=== PATIENT | female | born 1940 | race Caucasian/White ===

== ENCOUNTER → 2017-01-11 | Outpatient (CLI) | payer MEDICARE ==
--- NOTE | 2017-01-11 11:42 | REPMRS ---
Patient History The patient states she had a clinical breast exam in 01/15 Patient is postmenopausal, has history of other cancer at age 62, and has history of endometrial cancer at age 38. Family history of breast cancer in niece under age 50 and colorectal cancer in nephew at age 50 or over. Took hormonal contraceptives for 3 months. Digital Woman Screen Mammo: January 11, 2017 - Exam #: [id number] Bilateral CC and MLO view(s) were taken. Technologist: Milla Ma, Technologist Prior study comparison: January 10, 2016, digital woman screen mammo performed at [facility] [employer]. January 07, 2015, digital woman screen mammo performed at [facility] [employer] [facility]. January 05, 2014, digital woman screen mammo performed at [facility] [employer]. FINDINGS: There are scattered fibroglandular densities. There has been no change in the appearance of the mammogram from the prior studies. There is a mild amount of scattered fibroglandular density which is fairly symmetric. There is no interval development of dominant mass, architectural distortion, or clustered microcalcification suggestive of malignancy. ASSESSMENT: BI-RADS/ACR category 1 mammogram. Negative. Recommendation Routine screening mammogram in 1 year (for women over age 40). This mammogram was interpreted with the aid of an FDA-approved computer-aided dectection system. Electronically Signed By: Feliz Acevedo MD 01/11/17 [id number]
== END ==
LOC: M WHC 10:27
PROVIDERS: ATTEND Nurse Practitioner Family
DX: Z12.31 Encounter for screening mammogram for malignant neoplasm of breast (principal); Z78.0 Asymptomatic menopausal state; Z85.42 Personal history of malignant neoplasm of other parts of uterus
CPT/HCPCS: G0202; G0463

== ENCOUNTER → 2018-04-01 | Outpatient (CLI) | payer MEDICARE | LOC: M WHC 10:03 | DX: Z12.31 Encounter for screening mammogram for malignant neoplasm of breast (principal); Z78.0 Asymptomatic menopausal state; Z85.42 Personal history of malignant neoplasm of other parts of uterus | CPT/HCPCS: 77067 ==

== ENCOUNTER → 2019-04-04 | Outpatient (CLI) | payer MEDICARE ==
--- NOTE | 2019-04-04 11:51 | REPMRS ---
Patient History The patient states she had a clinical breast exam in 04/2019. Patient is postmenopausal, has history of basal cell skin cancer at age 62, has history of endometrial cancer at age 38, and had previous chemotherapy at age 38. Family history of breast cancer under age 50 in niece, colorectal cancer at age 50 or over in maternal unspecified relative. Took hormonal contraceptives for 3 months. 3D TOMOSYNTHESIS WAS PERFORMED. Digital Woman Screen Mammo: April 04, 2019 - Exam #: [id number] Bilateral CC and MLO view(s) were taken. Technologist: Katherin Bass, Technologist Prior study comparison: April 01, 2018, digital woman screen mammo performed at [facility] [employer]. January 11, 2017, digital woman screen mammo performed at [facility] [employer]. FINDINGS: There are scattered fibroglandular densities. There has been no change in the appearance of the mammogram from the prior studies. There is a mild amount of residual fibroglandular tissue which is fairly symmetric. There is no interval development of dominant mass, architectural distortion, or clustered microcalcification suggestive of malignancy. Assessment: BI-RADS/ACR category 1 mammogram. Negative Mammogram. Recommendation Routine screening mammogram in 1 year (for women over age 40). This mammogram was interpreted with the aid of an FDA-approved computer-aided dectection system. Electronically Signed By: Bethel Monroy MD 04/04/19 [id number]
--- NOTE | 2019-04-07 10:49 | DEXA ---
AP SPINE L1 - L4 1.302 0.9 2.6 LT FEMUR TOTAL 0.970 -0.3 1.5 LT NECK 0.864 -1.2 0.8 RT FEMUR TOTAL 0.902 -0.8 1.0 RT NECK 0.855 -1.3 0.7 TOTAL BODY TOTAL OTHER COMMENTS: Normal bone densitometry of the spine. There is low bone density of the hips. The increased density of the spine does represent a significant change. The increased density of the left hip does represent a significant change. The increased density of the right hip does not represent a significant change. The density of the spine has increased 23.1% since the initial exam on 01/03/2002. The spine density has increased 3.3% since the most recent exam on 12/17/2011. The density of the left hip has increased 10.6% since the initial exam on 01/03/2002. The density of the left hip has increased 2.8% since the most recent exam on 12/17/2011. The density of the right hip has increased 8.4% since the initial exam on 01/03/2002. The density of the right hip has increased 0.4% since the most recent exam on 12/17/2011. FOLLOW-UP: Recommendation for the next bone density exam: 2 years. JEZ
== END ==
LOC: M WHC 09:33
PROVIDERS: ATTEND Nurse Practitioner Family
DX: Z12.31 Encounter for screening mammogram for malignant neoplasm of breast (principal); N95.9 Unspecified menopausal and perimenopausal disorder; Z78.0 Asymptomatic menopausal state; Z85.828 Personal history of other malignant neoplasm of skin; Z85.40 Personal history of malignant neoplasm of unspecified female genital organ; Z92.21 Personal history of antineoplastic chemotherapy; Z92.0 Personal history of contraception
CPT/HCPCS: 77063; 77067; 77080; G0463

== ENCOUNTER → 2019-06-29 | Outpatient (CLI) | payer MEDICARE ==
--- NOTE | 2019-06-29 10:16 | PFTRPT ---
Height: 59.50 Inches Weight: 162.00 Lbs BSA: 1.70 Diagnosis: R05 DATE OF PROCEDURE: 06/29/2019 ORDERED BY: Dr. Sekou Garcia Spirometry: Pre and post bronchodilator study of excellent technical quality. Forced vital capacity normal. FEV1 in proportion. Obstructive index is, therefore, normal. Flow volume loop: Expiratory limb of the flow volume loop is normal. No significant bronchodilator response identified. Lung volumes: Total lung capacity borderline elevated. Residual volume is in proportion. Diffusing capacity: Diffusing capacity is normal. Hemoglobin: Hemoglobin is mildly reduced at 11.8. Airway mechanics: Airway resistance and conductance are normal. IMPRESSION: Underlying anemia; otherwise, normal study. MTDD
== END ==
LOC: M CARPUL 09:01
PROVIDERS: ATTEND Internal Medicine Pulmonary Disease
DX: R05 Cough (principal)

== ENCOUNTER → 2019-07-11 | Outpatient (CLI) | payer MEDICARE ==
[~2019-07-11] MED LIST: METHACHOLINE KIT (J7674) INH ONE
--- NOTE | 2019-07-11 14:36 | PFTRPT ---
Height: 59.50 Inches Weight: 162.00 Lbs BSA: 1.70 Diagnosis: R05 DATE OF PROCEDURE: 07/11/2019 ORDERED BY: Dr. Sekou Garcia INTERPRETATION: Study of excellent technical quality. Under protocol, methacholine was administered. At a dose of 2.5 mg or 13.875 CDUs, a 26% decline in the FEV1 was noted. PC of 0.93 is significant. Flow rates did return to baseline post bronchodilator administration. IMPRESSION: Positive methacholine challenge study. MTDD
== END ==
LOC: M CARPUL 13:17
PROVIDERS: ATTEND Internal Medicine Pulmonary Disease
DX: R05 Cough (principal)
CPT/HCPCS: 94070; 95070; J7674

== ENCOUNTER → 2019-10-13 | Outpatient (REF) | payer MEDICARE | LOC: M SFHCWAGY 18:39 | PROVIDERS: ATTEND Family Medicine | DX: R31.9 Hematuria, unspecified (principal) | CPT/HCPCS: 81002; 87088; 87186; G0463 ==

== ENCOUNTER → 2020-04-18 | Outpatient (CLI) | payer MEDICARE ==
--- NOTE | 2020-04-20 10:41 | REPMRS ---
Patient History The patient states she had a clinical breast exam in April 2020. Family history of breast cancer under age 50 in niece, colorectal cancer at age 50 or over in maternal unspecified relative. Took hormonal contraceptives for 3 months. Digital Woman Screen Mammo: April 18, 2020 - Exam #: [id number] Bilateral CC and MLO view(s) were taken. Technologist: Sabi Mauro, Technologist Prior study comparison: April 04, 2019, bilateral digital woman screen mammo performed at [facility]. April 01, 2018, digital woman screen mammo performed at [facility][1]. January 11, 2017, digital woman screen mammo performed at [facility][1]. FINDINGS: There are scattered fibroglandular densities. The Volpara volumetric breast density category is:B. There has been no change in the appearance of the mammogram from the prior studies. There is a mild amount of scattered fibroglandular density which is fairly symmetric. There is no interval development of dominant mass, architectural distortion, or grouped microcalcification suggestive of malignancy. 3-D tomosynthesis shows no additional findings. Assessment: BI-RADS/ACR category 1 mammogram. Negative Mammogram. Recommendation Routine screening mammogram of both breasts in 1 year (for women over age 40). This patient's Lifetime Breast Cancer Risk is estimated at 1.7 %. This mammogram was interpreted with the aid of an FDA-approved computer-aided dectection system. Electronically Signed By: Feliz Acevedo MD 04/20/20 1403
== END ==
LOC: M WHC 11:41
PROVIDERS: ATTEND Nurse Practitioner Family
DX: Z01.411 Encounter for gynecological examination (general) (routine) with abnormal findings (principal); Z12.31 Encounter for screening mammogram for malignant neoplasm of breast; Z92.0 Personal history of contraception
CPT/HCPCS: 77063; 77067; G0101

== ENCOUNTER → 2021-05-14 | Outpatient (CLI) | payer MEDICARE ==
--- NOTE | 2021-05-14 12:44 | REPMRS ---
Patient History The patient states she had a clinical breast exam in May 2021. Family history of breast cancer under age 50 in niece, colorectal cancer at age 50 or over in maternal unspecified relative. Took hormonal contraceptives for 3 months. Patient states no breast complaints today. Patient has signed MRS History Sheet. Digital Woman Screen Mammo: May 14, 2021 - Exam #: [id number] Bilateral CC and MLO view(s) were taken. Technologist: Elsie Rubio, Technologist Prior study comparison: April 18, 2020, bilateral digital woman screen mammo performed at [facility]. April 04, 2019, bilateral digital woman screen mammo performed at [facility]. FINDINGS: There are scattered fibroglandular densities. Screening. Digital screening (2D) mammography was performed bilaterally in the CC and MLO projections. Additionally, breast tomosynthesis (3D mammography) was performed bilaterally in the CC and MLO projections. Todays exam was compared to the prior exam/exams. By history, the patient has no complaints of a palpable breast abnormality or other significant breast complaints. The breasts are unchanged in size and shape. There are no sally-soft tissue densities or spiculated masses. There is no internal architectural distortion. Once again, stable benign appearing calcifications are seen.There are no suspicious sally-calcific clusters. Skin thickening or nipple retraction is not present. IMPRESSION: BI-RADS Category 2- Benign Findings. There is no evidence of malignant alteration of the breasts. Followup examination recommended in one year. The Volpara volumetric breast density category is B, there are scattered areas of fibroglandular densities. This mammogram was read with the assistance of [facility] [employer],an FDA approved computer aided detection system for mammography. The lifetime Tyrer-Cuzick score is 1.3 % Negative x-ray reports should not delay surgical consultation if a dominant or clinically suspicious mass is present. Not all breast cancers can be identified by mammography. Therefore, we recommend that you continue to perform regular breast self-examination and physical examination and then promptly contact your physician of any concerns or changes. Adenosis and dense breasts may obscure an underlying neoplasm. Assessment: BI-RADS/ACR category 2 mammogram. Benign Findings. Recommendation Routine screening mammogram of both breasts in 1 year. Electronically Signed By: Michel Epps DO 05/14/21 1240
== END ==
LOC: M WHC 11:36
PROVIDERS: ATTEND Nurse Practitioner Women's Health
DX: Z12.31 Encounter for screening mammogram for malignant neoplasm of breast (principal); Z80.3 Family history of malignant neoplasm of breast; Z92.0 Personal history of contraception; R92.1 Mammographic calcification found on diagnostic imaging of breast
CPT/HCPCS: 77063; 77067; G0463

== ENCOUNTER → 2022-04-17 | Outpatient (CLI) | payer MEDICARE | LOC: M WUC 12:07 | PROVIDERS: ATTEND Physician Assistant | DX: S23.41XD Sprain of ribs, subsequent encounter (principal) ==

== ENCOUNTER → 2022-07-22 | Outpatient (CLI) | payer MEDICARE | LOC: M WHC 14:03 | PROVIDERS: ATTEND Advanced Practice Midwife | DX: Z12.31 Encounter for screening mammogram for malignant neoplasm of breast (principal) ==

== ENCOUNTER → 2023-11-04 | Outpatient (CLI) | payer MEDICARE | LOC: M WHC 13:48 | PROVIDERS: ATTEND Advanced Practice Midwife | DX: Z12.31 Encounter for screening mammogram for malignant neoplasm of breast (principal) ==

== ENCOUNTER → 2024-02-17 | Outpatient (REF) | payer MEDICARE ==
[2024-02-17 18:19] LABS: APPEARANCE, URINE HAZY (CLEAR); BACTERIA, URINE AUTO NEGATIVE (NEGATIVE); BILIRUBIN, URINE AUTO NEGATIVE (NEGATIVE); BLOOD, URINE BLOOD NEGATIVE (NEGATIVE); COLOR, URINE YELLOW (YELLOW); GLUCOSE, URINE (UA) AUTO NEGATIVE (NEGATIVE); KETONE, URINE AUTO NEGATIVE (NEGATIVE); LEUKOCYTE ESTERASE, URINE AUTO NEGATIVE (NEGATIVE); MUCUS, URINE SMALL (NEGATIVE); NITRITE, URINE AUTO NEGATIVE (NEGATIVE); PROTEIN, URINE AUTO NEGATIVE (NEGATIVE); RBC, URINE AUTO 0 /HPF (0-3); SQUAMOUS EPITHELIAL CELL UR AU 0 /HPF (0-6); UROBILINOGEN, URINE AUTO 0.2 mg/dL (0.0-2.0); WBC, URINE AUTO 0 /HPF (0-3)
== END ==
LOC: M SMT 16:54
PROVIDERS: ATTEND Urology
DX: Z87.440 Personal history of urinary (tract) infections (principal); Z79.899 Other long term (current) drug therapy

== ENCOUNTER → 2024-03-03 | Outpatient (REF) | payer MEDICARE | LOC: M SFHCDERM 13:43 | PROVIDERS: ATTEND Physician Assistant | DX: T81.49XA Infection following a procedure, other surgical site, initial encounter (principal) ==

== ENCOUNTER → 2024-03-10 | Outpatient (REF) | payer MEDICARE | LOC: M SFHCDERM 15:59 | PROVIDERS: ATTEND Physician Assistant | DX: T81.49XA Infection following a procedure, other surgical site, initial encounter (principal) ==

== ENCOUNTER 2024-05-08 08:33 | Day surgery (SDC) | payer MEDICARE ==
[~2024-05-08] VITALS: Ht 154.9 cm; Wt 74.3 kg
[~2024-05-08 08:33] MED LIST changes: +AMLO1TAB24 PO; +ARNU1INH; +ATOR1TAB21 PO; +B-12100010 PO; +BENA-8 PO; +BYST10TA2 PO; +CALC500C16 PO; +ESOM40CA35 PO; +FAMO40TA3 PO; +FLOVENT; +LIDOCAINE 2% 100MG/5ML SDV (FOR ANES.) As Ordered ONE; -METHACHOLINE KIT (J7674) INH ONE; +MULT-90 PO; +ONDANSETRON 4MG 2ML VIAL As Ordered ONE; +ROCURONIUM BROMIDE 50MG/5ML VIAL As Ordered ONE; +SERT50TA29 PO; +SUCR1TAB56 PO; +SUGAMMADEX SODIUM 500 MG/5 ML VIAL (BRIDION) As Ordered ONE; +propofoL 200 MG/20 ML VIAL As Ordered ONE
[2024-05-08] MEDS ORDERED: fentaNYL 100 MCG/2 ML INJECTION As Ordered ONE (08:55)
[2024-05-08] MEDS ORDERED: LR 1,000 ML IV SCH ×2 (09:05→10:25)
[2024-05-08] MEDS: ceFAZolin SOD 2 GM in IV 1 EA IV ONE (10:00)
[2024-05-08] MEDS ORDERED: fentaNYL 100 MCG/2 ML INJECTION IV PRN (10:25)
[2024-05-08] MEDS ORDERED: ONDANSETRON 4MG 2ML VIAL IV PRN (10:25)
[2024-05-08 11:13] VITALS: BP 179/77; TEMP 97.8; O2SAT 97
== END 2024-05-08 11:41 | disposition home or self-care (01) ==
LOC: M SDC 08:33
PROVIDERS: ATTEND Urology
DX: N32.89 Other specified disorders of bladder (principal); R93.89 Abnormal findings on diagnostic imaging of other specified body structures; I10 Essential (primary) hypertension; E78.00 Pure hypercholesterolemia, unspecified; K44.9 Diaphragmatic hernia without obstruction or gangrene; K21.9 Gastro-esophageal reflux disease without esophagitis; J45.909 Unspecified asthma, uncomplicated; G47.00 Insomnia, unspecified; F32.A Depression, unspecified; Z85.43 Personal history of malignant neoplasm of ovary; Z91.030 Bee allergy status; Z88.2 Allergy status to sulfonamides; Z88.8 Allergy status to other drugs, medicaments and biological substances; Z87.891 Personal history of nicotine dependence; Z79.899 Other long term (current) drug therapy; Z87.440 Personal history of urinary (tract) infections
CPT/HCPCS: 52000; J0690; J1100; J2405; J3010

== ENCOUNTER → 2024-05-15 | Outpatient (REF) | payer MEDICARE ==
[~2024-05-15] MED LIST changes: -BYST10TA2 PO; +BYST1TAB3 PO; -LIDOCAINE 2% 100MG/5ML SDV (FOR ANES.) As Ordered ONE; -ONDANSETRON 4MG 2ML VIAL As Ordered ONE; -ROCURONIUM BROMIDE 50MG/5ML VIAL As Ordered ONE; -SUGAMMADEX SODIUM 500 MG/5 ML VIAL (BRIDION) As Ordered ONE; -propofoL 200 MG/20 ML VIAL As Ordered ONE
[2024-05-15 13:51] LABS: APPEARANCE, URINE HAZY (CLEAR); BACTERIA, URINE AUTO NEGATIVE (NEGATIVE); BILIRUBIN, URINE AUTO NEGATIVE (NEGATIVE); BLOOD, URINE BLOOD NEGATIVE (NEGATIVE); COLOR, URINE YELLOW (YELLOW); GLUCOSE, URINE (UA) AUTO NEGATIVE (NEGATIVE); KETONE, URINE AUTO NEGATIVE (NEGATIVE); LEUKOCYTE ESTERASE, URINE AUTO TRACE (NEGATIVE); MUCUS, URINE SMALL (NEGATIVE); NITRITE, URINE AUTO NEGATIVE (NEGATIVE); PROTEIN, URINE AUTO NEGATIVE (NEGATIVE); RBC, URINE AUTO 1 /HPF (0-3); SQUAMOUS EPITHELIAL CELL UR AU 1 /HPF (0-6); UROBILINOGEN, URINE AUTO 0.2 mg/dL (0.0-2.0); WBC, URINE AUTO 1 /HPF (0-3)
== END ==
LOC: M SMT 12:52
PROVIDERS: ATTEND Urology
DX: Z87.440 Personal history of urinary (tract) infections (principal); Z79.899 Other long term (current) drug therapy

== ENCOUNTER → 2024-05-29 | Outpatient (CLI) | payer MEDICARE ==
[~2024-05-29] MED LIST changes: +BYST10TA2 PO; -BYST1TAB3 PO; +ISOVUE-370 76% 100ML VIAL As Ordered ONE
== END ==
LOC: M RAD 10:21
PROVIDERS: ATTEND Urology
DX: Z87.440 Personal history of urinary (tract) infections (principal); K57.30 Diverticulosis of large intestine without perforation or abscess without bleeding; I70.0 Atherosclerosis of aorta
CPT/HCPCS: 72193; Q9967

== ENCOUNTER 2024-12-14 07:55 | Day surgery (SDC) | payer MEDICARE ==
[~2024-12-14] VITALS: Ht 152.4 cm; Wt 74.7 kg
[~2024-12-14 07:55] MED LIST changes: -ARNU1INH; +ARNU1INH INH; -BYST10TA2 PO; +BYST1TAB3 PO; +CALC600T60 PO; -ISOVUE-370 76% 100ML VIAL As Ordered ONE; +META28.32 PO
[2024-12-14] MEDS ORDERED: propofoL 200 MG/20 ML VIAL As Ordered ONE (08:26)
[2024-12-14] MEDS ORDERED: LIDOCAINE 2% 100MG/5ML SDV (FOR ANES.) As Ordered ONE (08:26)
[2024-12-14 09:15] VITALS: TEMP 96.9
[2024-12-14 09:34] VITALS: BP 166/88; O2SAT 94
== END 2024-12-14 09:35 | disposition home or self-care (01) ==
LOC: M OPP 07:55
PROVIDERS: ATTEND Surgery
DX: K44.9 Diaphragmatic hernia without obstruction or gangrene (principal); K29.60 Other gastritis without bleeding; K30 Functional dyspepsia; R14.0 Abdominal distension (gaseous); Z88.2 Allergy status to sulfonamides; Z91.030 Bee allergy status; Z88.8 Allergy status to other drugs, medicaments and biological substances; Z79.51 Long term (current) use of inhaled steroids; Z79.899 Other long term (current) drug therapy; J45.909 Unspecified asthma, uncomplicated

== ENCOUNTER → 2025-01-01 | Outpatient (CLI) | payer MEDICARE ==
[~2025-01-01] MED LIST changes: +E-Z-GAS II EFFERVESCENT PACKET (SODIUM BICARB./CITRIC ACID/SIMETHICONE) As Ordered ONE; +E-Z-HD 98% w/w 340GM SUSP BTL As Ordered ONE; +E-Z-PAQUE 96% w/w SUSP 176GM BTL As Ordered ONE
== END ==
LOC: M RAD 09:14
PROVIDERS: ATTEND Physician Assistant
DX: K30 Functional dyspepsia (principal); K44.9 Diaphragmatic hernia without obstruction or gangrene; Q39.4 Esophageal web

== ENCOUNTER 2025-02-12 10:16 | Day surgery (SDC) | payer MEDICARE ==
[~2025-02-12] VITALS: Ht 152.4 cm; Wt 76.2 kg
[~2025-02-12 10:16] MED LIST changes: +CYCLOPENTOLATE 1% OPHTH SOLN 2ML BTL OS SCH; -E-Z-GAS II EFFERVESCENT PACKET (SODIUM BICARB./CITRIC ACID/SIMETHICONE) As Ordered ONE; -E-Z-HD 98% w/w 340GM SUSP BTL As Ordered ONE; -E-Z-PAQUE 96% w/w SUSP 176GM BTL As Ordered ONE; +LR 1,000 ML IV SCH; +MIDAZOLAM INJ 2MG/2ML VIAL As Ordered ONE; +PHENYLEPHRINE 2.5% OPHTH SOL 2ML OS SCH; +TETRACAINE 0.5% OPHTH SOLN 4ML OS SCH
[2025-02-12] MEDS ORDERED: FLURBIPROFEN 0.03% OPHTH SOLN 2.5 ML OS SCH (12:05)
[2025-02-12 13:30] VITALS: BP 149/72; TEMP 97.4; O2SAT 94
[2025-02-12] MEDS: CEFUROXIME 1MG/0.1ML INTRACAMERAL INJ As Ordered ONE (13:30)
[2025-02-12] MEDS: LIDOCAINE 1% SDV 5ML VIAL As Ordered ONE (13:30)
== END 2025-02-12 14:00 | disposition home or self-care (01) ==
LOC: M SDC 10:16
PROVIDERS: ATTEND Ophthalmology
DX: H25.12 Age-related nuclear cataract, left eye (principal); I10 Essential (primary) hypertension; J45.909 Unspecified asthma, uncomplicated; E78.00 Pure hypercholesterolemia, unspecified; Z79.899 Other long term (current) drug therapy; Z87.891 Personal history of nicotine dependence; K21.9 Gastro-esophageal reflux disease without esophagitis; Z88.2 Allergy status to sulfonamides; Z91.030 Bee allergy status; Z85.828 Personal history of other malignant neoplasm of skin; Z85.43 Personal history of malignant neoplasm of ovary; Z92.21 Personal history of antineoplastic chemotherapy; Z86.0100 Personal history of colon polyps, unspecified
CPT/HCPCS: 66984; J0697; J2250; V2632

== ENCOUNTER → 2025-09-21 | Outpatient (CLI) | payer MEDICARE ==
[~2025-09-21] MED LIST changes: -CYCLOPENTOLATE 1% OPHTH SOLN 2ML BTL OS SCH; +E-Z-PAQUE 96% w/w SUSP 176 GM BTL As Ordered ONE; -LR 1,000 ML IV SCH; -MIDAZOLAM INJ 2MG/2ML VIAL As Ordered ONE; -PHENYLEPHRINE 2.5% OPHTH SOL 2ML OS SCH; +SIME1CAP4 PO; -TETRACAINE 0.5% OPHTH SOLN 4ML OS SCH
== END ==
LOC: M RAD 09:53
PROVIDERS: ATTEND Surgery
DX: K22.4 Dyskinesia of esophagus (principal)